=== PATIENT | male | born 1985 | race Caucasian/White ===

== ENCOUNTER → 2023-11-02 | Outpatient (CLI) | payer OTHER ==
--- NOTE | 2023-11-02 15:37 | XR ---
EXAMINATION TYPE: XR thoracic spine complete DATE OF EXAM: 11/02/2023 3:24 PM CLINICAL INDICATION:Male, 38 years old with history of M542,M546 CERVICALGIA,THOR PAIN; [facility] COMPARISON: None TECHNIQUE: XR thoracic spine complete views of the spine in Frontal and lateral projections. FINDINGS: No evidence of acute fracture. There is scattered multilevel disk space narrowing without loss of ve rtebral body height. There is normal alignment of the thoracic vertebral bodies. Scattered osteophyte formation along the anterior and lateral aspects of the vertebral bodies. Neural foramen are patent given limitations of this exam. Spinal canal appears patent. IMPRESSION: No acute osseous pathology. 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
== END | disposition home or self-care (01) ==
LOC: RADXRYALE 15:11
PROVIDERS: ATTEND Internal Medicine
DX: M47.814 Spondylosis without myelopathy or radiculopathy, thoracic region (principal); M54.2 Cervicalgia
CPT/HCPCS: 72072

== ENCOUNTER 2024-02-27 20:14 | Emergency (ER) | payer OTHER ==
--- NOTE | 2024-02-27 20:45 | ED ---
ENT HPI - General Chief complaint: ENT Stated complaint: L Ear Pain Time Seen by Provider: 02/27/24 20:41 Source: patient, RN notes reviewed Mode of arrival: ambulatory Limitations: no limitations - History of Present Illness Initial comments: This is a 38-year-old male who presents to the emergency department for left ear pain. States that it started 11 to 12 days ago. He was first put on a course of Augmentin for 7 days which he finished. His pain had almost entirely resolved after finishing this, but returned quickly after he completed the cour se. He then went to urgent care again 2 days ago and was started on cefdinir and Ciprodex drops. He was also given IM Rocephin and IM dexamethasone. Since then symptoms have been getting worse. Denies any fevers or chills. - Related Data Previous Rx's Medication Instructions Recorded Amoxic-Pot Clav 875-125Mg 1 tab PO Q12HR 10 Days #20 tab 02/27/24 [Augmentin 875-125] Levofloxacin [Levaquin] 500 mg PO DAILY 7 Days #7 tab 02/27/24 Naproxen Sodium 550 mg PO BID PRN #30 tab 02/27/24 Allergies Allergy/AdvReac Type Severity Reaction Status Date / Time No Known Allergies Allergy Verified 02/27/24 20:30 Review of Systems ROS Statement: Those systems with pertinent positive or pertinent negative responses have been documented in the HPI. ROS Other: All systems not noted in ROS Statement are negative. Past Medical History Past Medical History: Hypertension History of Any Multi-Drug Resistant Organisms: None Reported Past Surgical History: Appendectomy Past Psychological History: No Psychological Hx Reported Smoking Status: Never smoker Past Alcohol Use History: Occasional Past Drug Use History: None Reported General Exam Limitations: no limitations General appearance: alert, in no apparent distress Head exam: Present: atraumatic, normocephalic, normal inspection ENT exam: Present: other (Bulging and erythema of the left TM with erythema and swelling of the left canal and white debris present throughout the canal. There is no swelling or physical changes to the external ear.) Respiratory exam: Present: normal lung sounds bilaterally. Absent: respiratory distress, wheezes, rales, rhonchi, stridor Cardiovascular Exam: Present: regular rate, normal rhythm, normal heart sounds. Absent: systolic murmur, diastolic murmur, rubs, gallop, clicks Neurological exam: Present: alert, oriented X3, CN II-XII intact Psychiatric exam: Present: normal affect, normal mood Skin exam: Present: warm, dry, intact, normal color. Absent: rash Course Vital Signs 02/27/24 02/27/24 20:26 22:04 Temperature 98.2 F 98.4 F Pulse Rate 59 L 63 Respiratory 17 18 Rate Blood Pressure 150/88 143/81 O2 Sat by Pulse 100 100 Oximetry Medical Decision Making - Medical Decision Making This is a 38 year old male who presents to the emergency department for left ear pain. Was pt. sent in by a medical professional or institution? @ -No Did you speak to anyone other than the patient for history? @ -No Did you review nursing and triage notes? @ -Yes, and I agree, it is accurate with regards to the patient's symptoms. Were old charts reviewed? @ -No Differential Diagnosis? @ -Differential Ear Pain: Otitis media, otitis externa, eustachian tube dysfunction, allergic rhinitis, barotrauma, bullous myringitis, this is not meant to be an all-inclusive list. EKG interpreted by me (3pts min.)? @ -Not obtained X-rays interpreted by me (1pt min.)? @ -Not obtained CT interpreted by me (1pt min.)? @ -Not obtained U/S interpreted by me (1pt. min.)? @ -Not obtained What testing was considered but not performed? (CT, X-rays, U/S, labs)? Why? @ -None What meds were considered but not given? Why? @ -None Did you discuss the management of the patient with other professionals? @ -No Did you reconcile home meds? @ -No Was smoking cessation discussed for >3mins.? @ -No Was critical care preformed (if so, how long)? @ -No Were there social determinants of health that impacted care today? How? (Homelessness, low income, unemployed, alcoholism, drug addiction, transportation, low edu. Level, literacy, decrease access to med. care, fdc, rehab)? @ -No Was there de-escalation of care discussed even if they declined? (Discuss DNR or withdrawal of care, Hospice)? @ -No What co-morbidities impacted this encounter? (DM, HTN, Smoking, COPD, CAD, Cancer, CVA, Hep., AIDS, mental health diagnosis, sleep apnea, morbid obesity)? @ -None Was patient admitted / discharged? @ -Discharged. Physical examination consistent with otitis media and otitis externa. It appears he started with an otitis media that did not completely resolve and over the last couple of days has progressed to otitis externa as well. He has only been on the Ciprodex drops for a couple of days. Advised to continue with the Ciprodex drops and we will add oral Levaquin to strengthen the treatment. Naproxen prescribed to help with the pain. Information for ENT follow-up provided as well. Case discussed with ED attending, Dr. Obando. Return precautions reviewed in depth, the patient is instructed to return to the emergency department with any new, worsening, or concerning symptoms. Patient verbalized understanding. Undiagnosed new problem with uncertain prognosis? @ -None Drug Therapy requiring intensive monitoring for toxicity (Heparin, Nitro, Insulin, Cardizem)? @ -None Were any procedures done? @ -None Diagnosis/symptom? @ -Left otitis media, otitis externa Acute, or Chronic, or Acute on Chronic? @ -Acute Uncomplicated (without systemic symptoms) or Complicated (systemic symptoms)? @ -Uncomplicated Side effects of treatment? @ -None Exacerbation, Progression, or Severe Exacerbation] @ -Not applicable Poses a threat to life or bodily function? @ -Unlikely Disposition Clinical Impression: Left otitis externa, Left otitis media Disposition: HOME SELF-CARE Instructions (If sedation given, give patient instructions): Swimmer's Ear (ED), Ear Infection (ED) Additional Instructions: Return to the emergency department with any new, worsening, or concerning symptoms. Take the Augmentin as prescribed for 10 days and the Levaquin as prescribed for 7 days. Take the naproxen twice daily as needed for pain relief. Take this with Tylenol as needed. Contact the ENT provider listed below for a follow-up appointment and further evaluation of symptoms. Follow up with your primary care provider in 1-2 days. Prescriptions: Amoxic-Pot Clav 875-125Mg [Augmentin 875-125] 1 tab PO Q12HR 10 Days #20 tab Levofloxacin [Levaquin] 500 mg PO DAILY 7 Days #7 tab Naproxen Sodium 550 mg PO BID PRN #30 tab PRN Reason: Pain Is patient prescribed a controlled substance at d/c from ED?: No Referrals: Stacey Salter MD [Primary Care Provider] - 1-2 days Claude Muller MD [STAFF PHYSICIAN] - 1-2 days Time of Disposition: 21:36
[2024-02-27] MEDS: ACET/COD 300 MG/30 MG STARTER PACK 6 TAB BTL PO STA (21:55)
[2024-02-27] MEDS: KETOROLAC 15 MG/ML 1 ML VIAL IM STA (21:55)
[2024-02-27] MEDS: AMOXIC-POT CLAV 875-125MG 1 EACH TAB PO STA (21:56)
[2024-02-27] MEDS: LEVOFLOXACIN 750 MG TAB PO STA (21:56)
[2024-02-27 22:05] VITALS: BP 143/81; PULSE 63; RESP 18; TEMP 98.4
== END 2024-02-27 22:05 | disposition home or self-care (01) ==
LOC: EC 20:14
CPT/HCPCS: 96372; 99283